=== PATIENT | female | born 1975 | race Caucasian/White ===

== ENCOUNTER 2020-03-26 20:46 | Emergency (ER) | payer BC, SELFPAY ==
[2020-03-26 20:50] VITALS: BP 160/90; PULSE 100; RESP 18; TEMP 36.4; O2SAT 100
--- NOTE | 2020-03-26 21:07 | ED_ITS ---
HPI - Wound/Laceration General Chief Complaint: Wound/Laceration Stated Complaint: lac Time Seen by Provider: 03/26/20 21:05 History of Present Illness HPI narrative: She sustained a laceration to the left index finger while using a razor blade. This happened shortly before coming in. Pain is mild. Main concern was that she could not control the bleeding, but that seems to have stpped at this time. Related Data Home Medications Medication Instructions Recorded Confirmed No Home Medications 03/26/20 03/26/20 Allergies Allergy/AdvReac Type Severity Reaction Status Date / Time No Known Allergies Allergy Verified 03/26/20 20:47 Review of Systems Review of Systems: All systems reviewed & are unremarkable except as noted in HPI and below Hematologic/Lymphatic: Hematologic/Lymphatic: Denies easy bleeding and Denies easy bruising PMFSH Social History Social History (Updated 03/27/20 @ 03:02 by Rolando Sutton MD) Smoking status: Never smoker Exam Const: General: no acute distress and alert Orientation/consciousness: patient oriented x3 HENMT: Head: normal to inspection Resp: Effort & Inspection: normal respiratory effort Neuro: General: patient oriented x3 and moves all extremities Speech: normal speech Extrem: Other: shallow 3 cm laceration to left index finger Course Vital Signs Vital signs: Vital Signs Temperature 36.4 C 03/26/20 20:50 Pulse Rate 100 03/26/20 20:50 Respiratory Rate 18 03/26/20 20:50 Blood Pressure 160/90 H 03/26/20 20:50 Pulse Oximetry 100 03/26/20 20:50 Temperature 36.4 C 03/26/20 20:50 Pulse Rate 70 03/26/20 21:52 Respiratory Rate 18 03/26/20 21:52 Blood Pressure 132/77 03/26/20 21:52 Pulse Oximetry 98 03/26/20 21:52 MDM - Wound/Laceration MDM Narrative Medical decision making narrative: Her laceration was mild, but could have benefited from some sutures to aid in hemostasis. I offered to do this but she chose to forego any titches at this time. Differential Diagnosis Differential diagnosis: Likely laceration Discharge Plan Discharge Clinical Impression: Finger laceration Patient Disposition: Home, Self-Care Condition: Stable Instructions: Laceration (ED) Prescriptions: No Action No Home Medications RF: 0 Follow-up/Referrals: PHYSICIAN,TABLE MACHINE OPERATOR [Primary Care Provider] - Discharge Date/Time: 03/26/20 21:55
[2020-03-26 21:52] VITALS: BP 132/77; PULSE 70; RESP 18; O2SAT 98
== END 2020-03-26 21:55 | disposition home or self-care (01) ==
PROVIDERS: Emergency Provider Emergency Medicine
DX: S61.211A Laceration without foreign body of left index finger without damage to nail, initial encounter (principal); W27.8XXA Contact with other nonpowered hand tool, initial encounter
CPT/HCPCS: 99282